=== PATIENT | male | born 1955 | race Caucasian/White ===

== ENCOUNTER 2021-09-28 12:37 | Emergency (ER) | payer MEDICAID, OTHER ==
[~2021-09-28] VITALS: Ht 182.9 cm; Wt 113.4 kg
[2021-09-28] MEDS ORDERED: MORPHINE SULFATE INJECTION 2 MG/ML SYRG IM ONE (15:00)
[2021-09-28] MEDS ORDERED: BACITRACIN TOP OINT 1 UD PKG TOP ONE (15:00)
[2021-09-28] MEDS ORDERED: TETANUS-DIPTH-ACEL PERTUSSIS 0.5ML SYR Tdap IM ONE (15:00)
[2021-09-28] MEDS ORDERED: ACETAMINOPHEN 325 MG TAB PO ONE (15:45)
[2021-09-28] MEDS ORDERED: CEPH500C PO (15:59)
[2021-09-28 16:39] VITALS: BP 158/84
== END 2021-09-28 18:23 | disposition home or self-care (01) ==
LOC: ER 12:37
DX: S71.111A Laceration without foreign body, right thigh, initial encounter (principal); W26.8XXA Contact with other sharp object(s), not elsewhere classified, initial encounter; Y93.89 Activity, other specified; Y92.89 Other specified places as the place of occurrence of the external cause; Y99.8 Other external cause status
CPT/HCPCS: 12034; 73560; 90471; 90715